=== PATIENT | male | born 1960 | race African-American/Black ===

== ENCOUNTER 2019-12-20 14:09 | Inpatient (IN) ==
[2019-12-22] MEDS ORDERED: DEXTROSE 10% 250 ML BAG IV PRN ×2 (06:58)
[2019-12-22] MEDS ORDERED: GLUCAGON 1 MG VIAL IM PRN ×2 (06:58)
[2019-12-22] MEDS ORDERED: FUROSEMIDE 40 MG/4 ML VIAL ONE ×2 (16:45→21:18)
[2019-12-22] MEDS ORDERED: FUROSEMIDE 40 MG/4 ML VIAL IV ONE (16:49)
[2019-12-22] MEDS: ALBUTEROL/IPRATROPIUM 3 ML NEB RESP TX SCH ×3 (17:06→23:47)
[2019-12-22] MEDS ORDERED: ETOMIDATE 20 MG/10 ML VIAL IV ONE ×3 (18:03→18:13)
[2019-12-22] MEDS ORDERED: SUCCINYLCHOLINE 200 MG/10 ML VIAL ONE ×2 (18:03→18:14)
[2019-12-22] MEDS ORDERED: SUCCINYLCHOLINE 200 MG/10 ML VIAL IV ONE (18:11)
[2019-12-22 18:41] LABS: ABG Base Excess -10.7 MMOL/L (-2.5-2.5); ABG HCO3 16.2 MMOL/L (20-26); ABG Oxygen Saturation 99.8 % (95-100); ABG PCO2 23.8 MM HG (35-48); ABG PH 7.351 (7.35-7.45); ABG TCO2 11.3 MMOL/L (23-27)
[2019-12-22 18:52] LABS: Calcium 8.6 MG/DL (8.5-10.1); Osmolality,Calculated 275.4 MOS/KG (273-304)
[2019-12-22] MEDS ORDERED: HEPARIN/NACL 0.9% 2 UNITS/ML 0 ML IV ONE (18:54)
[2019-12-22] MEDS ORDERED: LIDOCAINE 2% 20 ML VIAL ONE (19:40)
[2019-12-22] MEDS ORDERED: LIDOCAINE 100 MG/5 ML SYRINGE ONE (19:44)
[2019-12-22] MEDS ORDERED: DOBUTamine 500 MG/250 ML PREMIX IV ONE (19:52)
[2019-12-22] MEDS ORDERED: SODIUM BICARBONATE 50 MEQ/50 ML VIAL IV ONE ×3 (19:52→21:41)
[2019-12-22] MEDS ORDERED: DOBUTamine 500 MG/250 ML PREMIX IV PRN (19:54)
[2019-12-22] MEDS ORDERED: CALCIUM GLUCONATE 1,000 MG in SODIUM CHLORIDE 0.9% 100 ML IV ONE (19:59)
[2019-12-22] MEDS ORDERED: FUROSEMIDE 100 MG/10 ML VIAL IV ONE (20:05)
[2019-12-22] MEDS ORDERED: HEPARIN 5,000 UNIT/1 ML VIAL IV ONE (20:05)
[2019-12-22] MEDS ORDERED: ALBUMIN 25% 50 GM in PREMIX 1 EACH IV ONE (20:14)
[2019-12-22] MEDS ORDERED: PHENYLEPHRINE DRIP 40 MG/250 ML PREMIX IV PRN (20:16)
[2019-12-22] MEDS ORDERED: ALBUMIN IV ONE (20:16)
[2019-12-22] MEDS ORDERED: HEPARIN/NACL 0.9% 2 UNITS/ML 500 ML IV ONE (20:17)
[2019-12-22] MEDS ORDERED: ALBUMIN 5% 12.5 GM/250 ML VIAL IV ONE (20:17)
[2019-12-22] MEDS ORDERED: CALCIUM CHLORIDE 1,000 MG/10 ML SYRINGE IV ONE (20:22)
[2019-12-22] MEDS ORDERED: HEPARIN DRIP 25,000 UNITS/500 ML PREMIX IV SCH (20:30)
[2019-12-22] MEDS ORDERED: SODIUM CHLORIDE 0.9% 500 ML IV ONE (20:48)
[2019-12-22] MEDS: SODIUM CHLORIDE 0.9% 500 ML IV ONE ×2 (20:50→21:37)
[2019-12-22 21:20] LABS: Basophils % 0.2 % (0.0-0.8); Hemoglobin 12.5 GM/DL (14.0-18.0); Immature Granulocytes Absolute 0.05 #; Lymphocytes # 0.4 10*3/uL (1.4-4.0); Lymphocytes % 7.5 % (21.2-54.2); Mean Corpuscular HGB Conc 32.1 GM/DL (32-36); Mean Corpuscular Volume 90.3 FL (87-102); Mean Platelet Volume 13.4 FL (9.6-12.0); Monocytes % 7.9 % (1.7-12.7); NRBC # 0.08 10*3/uL; Neutrophils % 83.4 % (38.7-73.9); Platelet Count 76 T/CUMM (130-400); Red Blood Count 4.32 MC/CUMM (3.8-5.5); Red Cell Distribution Width 17.2 % (9.3-17.3); White Blood Count 4.9 T/CUMM (4-12)
[2019-12-22 21:28] LABS: ABG Base Excess -3.7 MMOL/L (-2.5-2.5); ABG HCO3 21.3 MMOL/L (20-26); ABG Oxygen Saturation 99.9 % (95-100); ABG PCO2 32.3 MM HG (35-48); ABG PH 7.403 (7.35-7.45); ABG TCO2 17.8 MMOL/L (23-27)
[2019-12-22] MEDS: SODIUM CHLORIDE 0.9% 1,000 ML IV SCH (21:49)
[2019-12-22] MEDS: FUROSEMIDE INJ 100 MG in SODIUM CHLORIDE 0.9% 90 ML IV SCH (22:14)
[2019-12-22 22:40] LABS: Alanine Aminotransferase 279 U/L (16-61); Albumin 2.6 G/DL (3.4-5.0); Alkaline Phosphatase 64 U/L (45-117); Aspartate Amino Transferase 215 U/L (0-37); Bilirubin,Indirect 2.4 MG/DL (0.0-1.0)
[2019-12-22] MEDS: carvediloL 6.25 MG TABLET PO SCH (23:34)
[2019-12-22] MEDS: AMIODARONE 200 MG TABLET PO SCH (23:35)
[2019-12-23 00:27] LABS: Apearance,Urine CLEAR (Clear); Bilirubin,Urine Negative (Negative); Blood, Urine Moderate mg/dL (Negative); Glucose,Urine (UA) Negative (Negative); Hyaline Casts,Urine 8 /LPF (0-3); Ketones,Urine Negative (Negative); Mucus,Urine Occasional /LPF (Occasional); Nitrite,Urine Negative (Negative); Protein,Urine Negative; RBC,Urine 19 /HPF (0-4); Sperm,Urine Moderate /HPF (Negative); Urine Color Yellow (Yellow); Urine Specific Gravity 1.005 (1.001-1.035); Urine Urobilinogen < 2.0 EU/DL (0.2-1.0); WBC,Urine 3 /HPF (0-6)
[2019-12-23] MEDS: fentaNYL INJ 1,250 MCG in SODIUM CHLORIDE 0.9% 225 ML IV PRN ×2 (02:22→23:11)
[2019-12-23] MEDS: FUROSEMIDE INJ 100 MG in SODIUM CHLORIDE 0.9% 90 ML IV SCH ×6 (02:25→20:13)
[2019-12-23] MEDS: ALBUTEROL/IPRATROPIUM 3 ML NEB RESP TX SCH ×5 (02:43→21:28)
[2019-12-23 03:35] LABS: ABG Base Excess 2.9 MMOL/L (-2.5-2.5); ABG PH 7.448 (7.35-7.45); ABG TCO2 24.1 MMOL/L (23-27)
[2019-12-23 03:36] LABS: Basophils % 0.1 % (0.0-0.8); Hematocrit 34.7 VOL% (42.0-52.0); Hemoglobin 11.3 GM/DL (14.0-18.0); Immature Granulocytes % 0.4 %; Immature Granulocytes Absolute 0.03 #; Lymphocytes # 0.7 10*3/uL (1.4-4.0); Mean Corpuscular HGB Conc 32.6 GM/DL (32-36); Mean Corpuscular Volume 88.1 FL (87-102); Mean Platelet Volume 11.7 FL (9.6-12.0); Monocytes % 7.8 % (1.7-12.7); Neutrophils % 83.7 % (38.7-73.9); Platelet Count 62 T/CUMM (130-400); Red Blood Count 3.94 MC/CUMM (3.8-5.5); Red Cell Distribution Width 16.8 % (9.3-17.3); White Blood Count 8.4 T/CUMM (4-12)
[2019-12-23 03:54] LABS: Albumin 2.7 G/DL (3.4-5.0); Bilirubin,Total 8.3 MG/DL (0.2-1.0); Calcium 8.3 MG/DL (8.5-10.1); Osmolality,Calculated 284.7 MOS/KG (273-304); Total Protein 5.8 G/DL (6.4-8.3)
[2019-12-23 04:03] LABS: Troponin I 0.313 NG/ML (0.00-0.045)
[2019-12-23] MEDS: SODIUM CHLORIDE 0.9% 1,000 ML IV SCH ×2 (08:27→18:53)
[2019-12-23 09:07] LABS: Basophils % 0.3 % (0.0-0.8); Eosinophils # 0.2 10*3/uL (0.0-0.87); Eosinophils % 2.7 % (0.00-10.9); Hematocrit 32.9 VOL% (42.0-52.0); Hemoglobin 11.3 GM/DL (14.0-18.0); Immature Granulocytes % 0.7 %; Immature Granulocytes Absolute 0.05 #; Lymphocytes # 0.7 10*3/uL (1.4-4.0); Lymphocytes % 9.9 % (21.2-54.2); Mean Corpuscular HGB Conc 34.3 GM/DL (32-36); Mean Corpuscular Volume 84.8 FL (87-102); Monocytes % 8.8 % (1.7-12.7); NRBC # 0.02 10*3/uL; Neutrophils % 77.6 % (38.7-73.9); Red Blood Count 3.88 MC/CUMM (3.8-5.5); Red Cell Distribution Width 16.3 % (9.3-17.3); White Blood Count 7.3 T/CUMM (4-12)
[2019-12-23 09:12] LABS: Platelet Count 51 T/CUMM (130-400)
[2019-12-23 09:24] LABS: INR 1.8; PT Patient Result 18.7 SECS (9.8-11.9)
[2019-12-23 09:25] LABS: Partial Thromboplastin Time 48.4 SECS (23.9-33.8)
[2019-12-23] MEDS: carvediloL 6.25 MG TABLET PO SCH ×2 (10:03→20:31)
[2019-12-23] MEDS: AMIODARONE 200 MG TABLET PO SCH ×2 (10:03→20:31)
[2019-12-23] MEDS: SPIRONOLACTONE 25 MG TABLET PO SCH (10:03)
[2019-12-23] MEDS: DOBUTamine 500 MG/250 ML PREMIX IV SCH (11:41)
[2019-12-23 11:42] LABS: Band Neutrophils 3 % (0-10); Lymphocytes 6 % (20-55); Segmented Neutrophils 90 % (50-85); Total Cells Counted 100
[2019-12-23 11:43] LABS: Hypochromasia Slight; Ovalocytes Slight; Polychromasia Slight
[2019-12-23 11:44] LABS: Platelet Estimate Decreased
[2019-12-23 12:32] LABS: Hepatitis B Core IgM Quant 0.17 Index; Hepatitis B Surface Ag Quant 1.65 Index; Hepatitis C Virus Ab Quant 0.25 Index; Hepatitis C Virus Ab Result Negative (Negative)
[2019-12-23] MEDS: POTASSIUM CHLORIDE RIDER 10 MEQ in PREMIX 1 EACH IV PRN ×3 (13:42→15:40)
[2019-12-23] MEDS: FAMOTIDINE 20 MG/2 ML VIAL IV SCH (13:42)
[2019-12-23 16:39] LABS: INR 1.7; PT Patient Result 17.9 SECS (9.8-11.9); Partial Thromboplastin Time 33.4 SECS (23.9-33.8)
[2019-12-23] MEDS ORDERED: PHYTONADIONE INJ 10 MG in SODIUM CHLORIDE 0.9% 50 ML IV ONE (18:32)
[2019-12-23] MEDS: POTASSIUM CHLORIDE 20 MEQ/15 ML UDCUP PER TUBE PRN ×2 (20:31→23:03)
[2019-12-23 22:02] LABS: Basophils % 0.2 % (0.0-0.8); Eosinophils % 0.2 % (0.00-10.9); Hemoglobin 11.3 GM/DL (14.0-18.0); Immature Granulocytes % 0.5 %; Immature Granulocytes Absolute 0.03 #; Lymphocytes # 0.4 10*3/uL (1.4-4.0); Lymphocytes % 6.6 % (21.2-54.2); Mean Corpuscular HGB Conc 32.3 GM/DL (32-36); Mean Corpuscular Volume 88.6 FL (87-102); Mean Platelet Volume 11.7 FL (9.6-12.0); Monocytes % 10.7 % (1.7-12.7); NRBC # 0.02 10*3/uL; Neutrophils % 81.8 % (38.7-73.9); Platelet Count 61 T/CUMM (130-400); Red Blood Count 3.95 MC/CUMM (3.8-5.5); Red Cell Distribution Width 17.1 % (9.3-17.3); White Blood Count 5.7 T/CUMM (4-12)
[2019-12-23 22:13] LABS: INR 1.7
[2019-12-23 22:31] LABS: Albumin 2.8 G/DL (3.4-5.0); Bilirubin,Total 8.2 MG/DL (0.2-1.0); Calcium 8.3 MG/DL (8.5-10.1)
[2019-12-24] MEDS: ALBUTEROL/IPRATROPIUM 3 ML NEB RESP TX SCH ×7 (01:12→23:55)
[2019-12-24 01:14] LABS: Anisocytosis 1+; Band Neutrophils 2 % (0-10); Eosinophils 1 % (0-10); Lymphocytes 7 % (20-55); Nucleated Red Blood Cells 1 (0-5); Segmented Neutrophils 84 % (50-85); Total Cells Counted 100
[2019-12-24 01:15] LABS: Hypochromasia 1+; Platelet Estimate Decreased
[2019-12-24] MEDS: POTASSIUM CHLORIDE 20 MEQ/15 ML UDCUP PER TUBE PRN ×5 (01:37→16:16)
[2019-12-24] MEDS: DOBUTamine 500 MG/250 ML PREMIX IV SCH ×2 (05:25→20:43)
[2019-12-24] MEDS: SODIUM CHLORIDE 0.9% 1,000 ML IV SCH ×2 (05:26→09:10)
[2019-12-24] MEDS: FUROSEMIDE INJ 100 MG in SODIUM CHLORIDE 0.9% 90 ML IV SCH ×2 (05:27→14:29)
[2019-12-24] MEDS ORDERED: CEFUROXIME INJ 1,500 MG in SYRINGE 1 EACH IV ONE (06:00)
[2019-12-24 06:26] LABS: Basophils % 0.2 % (0.0-0.8); Eosinophils % 0.2 % (0.00-10.9); Hematocrit 34.5 VOL% (42.0-52.0); Hemoglobin 11.4 GM/DL (14.0-18.0); Immature Granulocytes % 0.8 %; Immature Granulocytes Absolute 0.05 #; Lymphocytes # 0.4 10*3/uL (1.4-4.0); Mean Corpuscular Volume 87.6 FL (87-102); Mean Platelet Volume 12.4 FL (9.6-12.0); Monocytes % 10.2 % (1.7-12.7); NRBC # 0.02 10*3/uL; Neutrophils % 82.6 % (38.7-73.9); Platelet Count 54 T/CUMM (130-400); Red Blood Count 3.94 MC/CUMM (3.8-5.5); Red Cell Distribution Width 17.3 % (9.3-17.3)
[2019-12-24 06:27] LABS: ABG Base Excess 7.9 MMOL/L (-2.5-2.5); ABG HCO3 31.7 MMOL/L (20-26); ABG Oxygen Saturation 99.8 % (95-100); ABG PCO2 38.9 MM HG (35-48); ABG PH 7.516 (7.35-7.45); ABG TCO2 27.8 MMOL/L (23-27)
[2019-12-24 06:53] LABS: Albumin 2.6 G/DL (3.4-5.0); Bilirubin,Total 8.6 MG/DL (0.2-1.0); Calcium 8.5 MG/DL (8.5-10.1); Osmolality,Calculated 286.1 MOS/KG (273-304); Total Protein 6.1 G/DL (6.4-8.3)
[2019-12-24 07:21] LABS: INR 1.6; PT Patient Result 16.9 SECS (9.8-11.9)
[2019-12-24 07:48] LABS: VBG Base Excess 7.4 MEQ/L (0-4); VBG HCO3 29.5 MEQ/L (24-28); VBG Oxygen Saturation 93.9 %; VBG PH 7.569
[2019-12-24] MEDS: carvediloL 6.25 MG TABLET PO SCH ×2 (09:18→22:21)
[2019-12-24] MEDS: SPIRONOLACTONE 25 MG TABLET PO SCH (09:18)
[2019-12-24] MEDS: CHLORHEXIDINE 0.12% ORAL RINSE 60 ML BOTTLE SWISH/SPIT SCH ×2 (09:19→21:41)
[2019-12-24] MEDS: AMIODARONE 200 MG TABLET PO SCH ×2 (09:19→22:21)
[2019-12-24 12:17] LABS: Lymphocytes 3 % (20-55); Platelet Estimate Decreased; Segmented Neutrophils 90 % (50-85); Total Cells Counted 100
[2019-12-24 12:27] LABS: VBG Base Excess 8.8 MEQ/L (0-4); VBG HCO3 31.6 MEQ/L (24-28); VBG Oxygen Saturation 50.5 %; VBG PCO2 52.5 MMHG (41-51); VBG PH 7.43; VBG PO2 31.6 MMHG (17-40)
[2019-12-24] MEDS: FAMOTIDINE 20 MG/2 ML VIAL IV SCH (13:25)
[2019-12-24] MEDS: CHLORHEXIDINE 4% SOLN 118 ML BOTTLE TOP SCH ×2 (16:58→21:40)
[2019-12-24 18:33] LABS: Eosinophils % 0.2 % (0.00-10.9); Hematocrit 34.2 VOL% (42.0-52.0); Hemoglobin 11.1 GM/DL (14.0-18.0); Immature Granulocytes % 0.9 %; Immature Granulocytes Absolute 0.05 #; Lymphocytes # 0.3 10*3/uL (1.4-4.0); Mean Corpuscular HGB Conc 32.5 GM/DL (32-36); Mean Corpuscular Volume 89.8 FL (87-102); Mean Platelet Volume 12.5 FL (9.6-12.0); NRBC # 0.05 10*3/uL; Neutrophils % 83.9 % (38.7-73.9); Platelet Count 50 T/CUMM (130-400); Red Blood Count 3.81 MC/CUMM (3.8-5.5); Red Cell Distribution Width 17.5 % (9.3-17.3); White Blood Count 5.3 T/CUMM (4-12)
[2019-12-24 23:07] VITALS: BP 122/43
[2019-12-25] MEDS ORDERED: PIPERACILLIN/TAZOBACTAM 3,375 MG in SODIUM CHLORIDE 0.9% 100 ML IV ONE (02:45)
[2019-12-25] MEDS ORDERED: CEFUROXIME INJ 1,500 MG in SYRINGE 1 EACH IV ONE ×2 (02:48→06:00)
[2019-12-25] MEDS ORDERED: ACETAMINOPHEN 650 MG SUPP RECTAL PRN (02:50)
[2019-12-25] MEDS: ALBUTEROL/IPRATROPIUM 3 ML NEB RESP TX SCH ×2 (03:21→07:00)
[2019-12-25] MEDS: FUROSEMIDE INJ 100 MG in SODIUM CHLORIDE 0.9% 90 ML IV SCH (03:37)
[2019-12-25] MEDS: fentaNYL INJ 1,250 MCG in SODIUM CHLORIDE 0.9% 225 ML IV PRN (03:53)
[2019-12-25 05:24] LABS: ABG Base Excess 6.8 MMOL/L (-2.5-2.5); ABG HCO3 30.6 MMOL/L (20-26); ABG Oxygen Saturation 98.7 % (95-100); ABG PCO2 48.2 MM HG (35-48); ABG PH 7.433 (7.35-7.45); ABG TCO2 28.7 MMOL/L (23-27)
[2019-12-25 05:39] LABS: Basophils % 0.3 % (0.0-0.8); Eosinophils % 0.1 % (0.00-10.9); Hematocrit 34.8 VOL% (42.0-52.0); Hemoglobin 11.3 GM/DL (14.0-18.0); Immature Granulocytes % 0.9 %; Immature Granulocytes Absolute 0.07 #; Lymphocytes # 0.2 10*3/uL (1.4-4.0); Lymphocytes % 2.4 % (21.2-54.2); Mean Corpuscular HGB Conc 32.5 GM/DL (32-36); Mean Corpuscular Volume 88.3 FL (87-102); Mean Platelet Volume 12.7 FL (9.6-12.0); NRBC # 0.06 10*3/uL; Neutrophils % 91.3 % (38.7-73.9); Platelet Count 52 T/CUMM (130-400); Red Blood Count 3.94 MC/CUMM (3.8-5.5); Red Cell Distribution Width 17.7 % (9.3-17.3); White Blood Count 7.5 T/CUMM (4-12)
[2019-12-25] MEDS ORDERED: PAPAVERINE 60 MG/2 ML VIAL ONE (05:44)
[2019-12-25] MEDS ORDERED: VANCOMYCIN 500 MG VIAL ONE (05:44)
[2019-12-25] MEDS ORDERED: VANCOMYCIN 1,000 MG VIAL ONE (05:45)
[2019-12-25 05:49] LABS: INR 1.4; PT Patient Result 14.9 SECS (9.8-11.9)
[2019-12-25 05:51] LABS: Albumin 2.8 G/DL (3.4-5.0); Bilirubin,Total 9.5 MG/DL (0.2-1.0); Calcium 8.4 MG/DL (8.5-10.1); Osmolality,Calculated 289.8 MOS/KG (273-304); Total Protein 6.5 G/DL (6.4-8.3)
[2019-12-25 06:12] LABS: Band Neutrophils 4 % (0-10); Hypochromasia 1+; Lymphocytes 5 % (20-55); Nucleated Red Blood Cells 2 (0-5); Platelet Estimate Decreased; Segmented Neutrophils 88 % (50-85); Total Cells Counted 100
[2019-12-25] MEDS: POTASSIUM CHLORIDE RIDER 10 MEQ in PREMIX 1 EACH IV PRN (06:15)
[2019-12-25] MEDS ORDERED: HEPARIN/NACL 0.9% 2 UNITS/ML 500 ML IV ONE (06:20)
[2019-12-25] MEDS ORDERED: CALCIUM CHLORIDE 1,000 MG/10 ML VIAL IV ONE ×2 (06:20→13:14)
[2019-12-25] MEDS ORDERED: MIDAZOLAM 10 MG/2 ML VIAL ONE ×2 (06:20→13:12)
[2019-12-25] MEDS ORDERED: PHENYLEPHRINE DRIP 20 MG/250 ML PREMIX IV ONE ×2 (06:20→13:15)
[2019-12-25] MEDS ORDERED: SUFentanil 250 MCG/5 ML AMP ONE (06:20)
[2019-12-25] MEDS ORDERED: VECURONIUM 10 MG VIAL IV ONE (06:21)
[2019-12-25] MEDS ORDERED: AMINOCAPROIC ACID 5,000 MG/20 ML VIAL ONE (06:21)
[2019-12-25] MEDS ORDERED: PHENYLEPHRINE 1 MG/10 ML SYRINGE IV ONE ×2 (06:21→13:16)
[2019-12-25] MEDS ORDERED: SODIUM CHLORIDE 0.9% 1,000 ML IV ONE (06:22)
[2019-12-25] MEDS ORDERED: LACTATED RINGERS 1,000 ML IV ONE (06:22)
[2019-12-25] MEDS ORDERED: SODIUM CHLORIDE 0.9% 250 ML IV ONE (06:22)
[2019-12-25 07:51] LABS: ABG Base Excess 5.5 MMOL/L (-2.5-2.5); ABG HCO3 29.9 MMOL/L (20-26); ABG Oxygen Saturation 99.6 % (95-100); ABG PCO2 43.1 MM HG (35-48); ABG PH 7.459 (7.35-7.45); ABG TCO2 31.2 MMOL/L (23-27); Glucose Heart Surgery 81 MG/DL (74-106); Hemoglobin Heart Surgery 11.8 G/DL (14.0-18.0); PCO2 Patient Temp Arterial 43.1 MMHG; PH Patient Temp Arterial 7.459; Patient Temperature 37 CELCIUS; Potassium Heart/CVR 3.6 MMOL/L (3.5-5.1); Sodium Heart/CVR 142 MMOL/L (135-145)
[2019-12-25] MEDS ORDERED: EPINEPHrine 1 MG/10 ML SYRINGE ONE ×2 (08:11→13:15)
[2019-12-25] MEDS ORDERED: ALBUMIN 5% 12.5 GM/250 ML VIAL IV ONE ×2 (08:11→13:15)
[2019-12-25] MEDS ORDERED: CALCIUM CHLORIDE 1,000 MG/10 ML SYRINGE IV ONE (08:11)
[2019-12-25 08:46] LABS: Hematocrit Heart Surgery 24.9 PERCENT (42-52); PCO2 Patient Temp Venous 42.6 MM HG; PH Patient Temp Venous 7.475; PO2 Patient Temp Venous 39.2 MM HG; Potassium Heart/CVR 3.6 MMOL/L (3.5-5.1); VBG Base Excess 7.2 MEQ/L (0-4); VBG HCO3 30.7 MEQ/L (24-28); VBG Oxygen Saturation 75.6 %; VBG PCO2 44.7 MMHG (41-51); VBG PH 7.46; VBG PO2 42.1 MMHG (17-40)
[2019-12-25 09:10] LABS: Hematocrit Heart Surgery 27.8 PERCENT (42-52); PH Patient Temp Venous 7.564; PO2 Patient Temp Venous 33.4 MM HG; Potassium Heart/CVR 3.6 MMOL/L (3.5-5.1); VBG Base Excess 7.6 MEQ/L (0-4); VBG HCO3 31.1 MEQ/L (24-28); VBG Oxygen Saturation 78.2 %; VBG PCO2 38.2 MMHG (41-51); VBG PH 7.518; VBG PO2 41.1 MMHG (17-40)
[2019-12-25 09:41] LABS: Hematocrit Heart Surgery 28.9 PERCENT (42-52); Hemoglobin Heart Surgery 9.3 G/DL (14.0-18.0); PCO2 Patient Temp Venous 28.3 MM HG; PO2 Patient Temp Venous 29.4 MM HG; Potassium Heart/CVR 4.1 MMOL/L (3.5-5.1); VBG Base Excess 7.8 MEQ/L (0-4); VBG HCO3 31.2 MEQ/L (24-28); VBG PCO2 32.8 MMHG (41-51); VBG PH 7.571; VBG PO2 36.4 MMHG (17-40)
[2019-12-25 09:42] LABS: PH Patient Temp Venous 7.619
[2019-12-25] MEDS: SODIUM CHLORIDE 0.9% 1,000 ML IV SCH (09:44)
[2019-12-25] MEDS: CHLORHEXIDINE 0.12% ORAL RINSE 60 ML BOTTLE SWISH/SPIT SCH (09:45)
[2019-12-25] MEDS: AMIODARONE 200 MG TABLET PO SCH (09:45)
[2019-12-25] MEDS: SPIRONOLACTONE 25 MG TABLET PO SCH (09:45)
[2019-12-25] MEDS: carvediloL 6.25 MG TABLET PO SCH (09:45)
[2019-12-25] MEDS: CHLORHEXIDINE 4% SOLN 118 ML BOTTLE TOP SCH (09:45)
[2019-12-25] MEDS ORDERED: DEXTROSE 5% KCL 20 MEQ 20 MEQ/1,000 ML BAG IV ONE (10:20)
[2019-12-25] MEDS ORDERED: SODIUM BICARBONATE 50 MEQ/50 ML VIAL IV ONE ×2 (10:20→13:15)
[2019-12-25] MEDS ORDERED: MANNITOL 100 GM/500 ML BAG IV ONE (10:20)
[2019-12-25] MEDS ORDERED: LIDOCAINE 2% 5 ML VIAL ONE (10:20)
[2019-12-25] MEDS ORDERED: methylPREDNISolone SOD SUC 1,000 MG/8 ML VIAL ONE (10:21)
[2019-12-25] MEDS ORDERED: POTASSIUM CHLORIDE 20 MEQ/10 ML VIAL ONE (10:21)
[2019-12-25] MEDS ORDERED: HEPARIN 10,000 UNIT/10 ML VIAL ONE ×2 (10:21→12:03)
[2019-12-25] MEDS ORDERED: ALBUMIN 25% 25 GM/100 ML VIAL IV ONE (10:21)
[2019-12-25] MEDS ORDERED: MAGNESIUM SULFATE 5 GM/10 ML VIAL IV ONE (10:21)
[2019-12-25] MEDS ORDERED: PROTAMINE SULFATE 250 MG/25 ML VIAL IV ONE ×2 (10:21→12:03)
[2019-12-25] MEDS ORDERED: FUROSEMIDE 20 MG/2 ML VIAL ONE ×2 (10:21→12:04)
[2019-12-25] MEDS ORDERED: PROTAMINE SULFATE 50 MG/5 ML VIAL IV ONE ×2 (10:21→12:04)
[2019-12-25] MEDS ORDERED: THROMBIN TOPICAL (RECOMBINANT) 5,000 UNIT VIAL TOP ONE (10:33)
[2019-12-25 10:43] LABS: ABG Base Excess 5.4 MMOL/L (-2.5-2.5); ABG HCO3 29.3 MMOL/L (20-26); ABG PCO2 45.8 MM HG (35-48); ABG PH 7.429 (7.35-7.45); ABG TCO2 28.2 MMOL/L (23-27); Glucose Heart Surgery 134 MG/DL (74-106); Hematocrit Heart Surgery 25.4 PERCENT (42-52); Hemoglobin Heart Surgery 8.2 G/DL (14.0-18.0); Ionized Calcium Arterial 1.18 MMOL/L (1.21-1.46); PCO2 Patient Temp Arterial 45.8 MMHG; PH Patient Temp Arterial 7.429; Patient Temperature 37 CELCIUS; Potassium Heart/CVR 3.6 MMOL/L (3.5-5.1); Sodium Heart/CVR 143 MMOL/L (135-145)
[2019-12-25] MEDS ORDERED: FAMOTIDINE 20 MG/2 ML VIAL IV ONE (10:58)
[2019-12-25 11:20] LABS: ABG Base Excess 18.8 MMOL/L (-2.5-2.5); ABG PCO2 46.9 MM HG (35-48); ABG PH 7.574 (7.35-7.45); ABG TCO2 40.6 MMOL/L (23-27); Glucose Heart Surgery 119 MG/DL (74-106); Hematocrit Heart Surgery 23.6 PERCENT (42-52); Hemoglobin Heart Surgery 7.6 G/DL (14.0-18.0); Ionized Calcium Arterial 0.93 MMOL/L (1.21-1.46); PCO2 Patient Temp Arterial 46.9 MMHG; PH Patient Temp Arterial 7.574; Patient Temperature 37 CELCIUS; Potassium Heart/CVR 3.9 MMOL/L (3.5-5.1); Sodium Heart/CVR 156 MMOL/L (135-145)
[2019-12-25] MEDS ORDERED: SODIUM CHLORIDE 0.9% 1,000 ML IV PRN (11:36)
[2019-12-25 11:37] LABS: PCO2 Patient Temp Venous 43.8 MM HG; PH Patient Temp Venous 7.435; PO2 Patient Temp Venous 38.1 MM HG; Potassium Heart/CVR 4.2 MMOL/L (3.5-5.1); VBG Base Excess 4.1 MEQ/L (0-4); VBG HCO3 28.7 MEQ/L (24-28); VBG Oxygen Saturation 68.9 %; VBG PCO2 43.8 MMHG (41-51); VBG PH 7.435; VBG PO2 38.1 MMHG (17-40)
[2019-12-25 12:01] LABS: ABG Base Excess 4.1 MMOL/L (-2.5-2.5); ABG HCO3 28.2 MMOL/L (20-26); ABG PCO2 48.3 MM HG (35-48); ABG PH 7.395 (7.35-7.45); ABG TCO2 27.6 MMOL/L (23-27); Glucose Heart Surgery 129 MG/DL (74-106); Hematocrit Heart Surgery 24.9 PERCENT (42-52); Ionized Calcium Arterial 1.41 MMOL/L (1.21-1.46); PCO2 Patient Temp Arterial 48.3 MMHG; PH Patient Temp Arterial 7.395; Patient Temperature 37 CELCIUS; Potassium Heart/CVR 3.6 MMOL/L (3.5-5.1); Sodium Heart/CVR 146 MMOL/L (135-145)
[2019-12-25] MEDS ORDERED: NOREPINEPHRINE 4 MG/4 ML VIAL IV ONE (12:04)
[2019-12-25] MEDS ORDERED: ATROPINE 1 MG/10 ML SYRINGE ONE (13:14)
[2019-12-25] MEDS ORDERED: SODIUM BICARBONATE 10 MEQ/10 ML SYRINGE IV ONE (13:15)
[2019-12-25] MEDS ORDERED: EPINEPHrine 1 MG/ML VIAL ONE (13:16)
[2019-12-25] MEDS ORDERED: HYDROCORTISONE 100 MG VIAL ONE (13:16)
[2019-12-25] MEDS ORDERED: SEVOFLURANE 1 UNIT/15 MINUTE INH ONE (13:16)
== END 2019-12-25 12:29 | disposition expired | DRG 219 ==
LOC: N.ICU 12-22 15:53 → N.CVR 12-25 12:28